=== PATIENT | female | born 1985 | race Caucasian/White ===

== ENCOUNTER 2019-05-04 09:13 | Emergency (ER) | payer SELFPAY ==
[~2019-05-04] VITALS: Ht 162.6 cm; Wt 59.0 kg
[2019-05-04 09:41] VITALS: BP 127/76
[2019-05-04] MEDS ORDERED: cefTRIAXone 1GM/50ML D5W 50 ML IV ONE (10:00)
[2019-05-04] MEDS ORDERED: KETOROLAC TROMETH 30 MG/ML 1ML VIAL IV ONE (10:00)
== END 2019-05-04 11:02 | disposition home or self-care (01) ==
LOC: ER 09:13
DX: S00.86XA Insect bite (nonvenomous) of other part of head, initial encounter (principal); W57.XXXA Bitten or stung by nonvenomous insect and other nonvenomous arthropods, initial encounter; Y93.89 Activity, other specified; Y99.8 Other external cause status; Y92.89 Other specified places as the place of occurrence of the external cause
CPT/HCPCS: 96365; 96375; 99283; J0696; J1885

== ENCOUNTER 2019-05-05 09:34 | Emergency (ER) | payer MEDICAID, OTHER ==
[~2019-05-05] VITALS: Ht 162.6 cm; Wt 59.0 kg
[2019-05-05 09:51] VITALS: BP 143/80
[2019-05-05] MEDS ORDERED: cefTRIAXone 1GM/50ML D5W 50 ML IV ONE (11:15)
[2019-05-05] MEDS ORDERED: KETOROLAC TROMETH 30 MG/ML 1ML VIAL IV ONE (11:15)
== END 2019-05-05 12:23 | disposition home or self-care (01) ==
LOC: ER 09:34
DX: S00.86XA Insect bite (nonvenomous) of other part of head, initial encounter (principal); L03.211 Cellulitis of face; W57.XXXA Bitten or stung by nonvenomous insect and other nonvenomous arthropods, initial encounter; Y93.89 Activity, other specified; Y99.8 Other external cause status; Y92.89 Other specified places as the place of occurrence of the external cause
CPT/HCPCS: 96365; 96375; 99283; J0696; J1885

== ENCOUNTER 2019-05-06 08:29 | Emergency (ER) | payer SELFPAY ==
[~2019-05-06] VITALS: Ht 162.6 cm; Wt 59.0 kg
[2019-05-06 08:37] VITALS: BP 114/78
[2019-05-06] MEDS ORDERED: cefTRIAXone SOD 1,000 MG VL IM ONE (09:30)
== END 2019-05-06 09:51 | disposition home or self-care (01) ==
LOC: ER 08:29
DX: L03.211 Cellulitis of face (principal)
CPT/HCPCS: 96372; 99283; J0696